=== PATIENT | male | born 1950 | race Asian ===

== ENCOUNTER 2017-07-02 11:12 | Inpatient (IN) | payer OTHER ==
[~2017-07-02] VITALS: Ht 170.2 cm; Wt 72.6 kg
[2017-07-02] VITALS (14 sets, daily range): BP systolic 103–148; BP diastolic 64–97; TEMP 98.7–98.8; Ht 170.2 cm; Wt 72.6 kg
--- NOTE | 2017-07-02 10:34 | NUR ---
PT DIRECT ADMIT TO ICU FROM U TO DR MARTÍNEZ. PT DENIES NAUSEA OR ABDOMINAL PAIN. ASSISTED TO BED 1.ORIENTED TO . PLACED ON CARDIAC MONITER. PT IN SR.
--- NOTE | 2017-07-02 10:50 | NUR ---
IV 20G INSYTE INSERTED R AC X 1 STICK,LABS DRAWN & TO LAB.
[~2017-07-02 11:12] MED LIST: ALBU0.5N13 INH; ALLO100T22 PO; ASPIR-8181 MG PO; BACLOFEN10 MG PO; CARDURA4 MG PO; CLON0.1T16 PO; CLOP75TA2 PO; DEKAS ESSENTIAL PO; FERROUS SU220 MG/5 M PO; FLUOXETINE20 MG PO; FURO40TA93 PO; INSUINJ20 SC; JEVITY 1.5 PO; LACTSYP31 PO; LANSOPRAZOLE30 MG PO; MAG OXIDE400 M2 PO; METOPROLOL25 M1 PO; MIDODRINE10 MG PO; OSCAL 500/1 TAB PO; OXCARBAZEP300 MG/51 PO; PACERONE200 MG PO; PRAVACHOL80 MG PO; TYLENOL325 MG PO
--- NOTE | 2017-07-02 11:50 | NUR ---
18F MCCRACKEN INSERTED PER ASEPTIC TECNIQUE. UA OBTAINED & TO LAB.
[2017-07-02 12:14] LABS: PLATELET COUNT 568 K/uL (142-355)
[2017-07-02 12:39] LABS: POTASSIUM 5.6 mmol/L (3.6-5.2)
--- NOTE | 2017-07-02 13:00 | NUR ---
[facility] CALLED TO NIMISHA SMITH APRN.
[2017-07-02] MEDS ORDERED: FLUOXETINE20 MG PO (15:03)
[2017-07-02] MEDS ORDERED: MULT VITAMI2 PO (15:15)
[2017-07-02] MEDS ORDERED: TRILEPTAL300 MG PO ×2 (15:22→15:24)
[2017-07-02] MEDS ORDERED: IRON325 MG PO (15:27)
[2017-07-02] MEDS ORDERED: METAMUCIL0.52 GM PEG (15:29)
[2017-07-02] MEDS ORDERED: PROTONIX20 MG PO (15:34)
[2017-07-02] MEDS ORDERED: ZINC220C4 PO (15:35)
[2017-07-02] MEDS ORDERED: LEVO-T50 MCG PO (15:37)
[2017-07-02] MEDS ORDERED: ASCORBIC ACID PEG (15:40)
[2017-07-02] MEDS ORDERED: ASCO500T18 PO (15:45)
[2017-07-02] MEDS ORDERED: [UNRECOGNIZED DRUG - CODE] EX (15:55)
--- NOTE | 2017-07-02 18:00 | NUR ---
PT AWAKE AND WANTS TO EAT. HOB UP. MCCRACKEN TO BSD. PT ALERT/ORIENTED
--- NOTE | 2017-07-02 20:00 | NUR ---
ATTEMPTED AGAIN TO NOTIFY FAMILY OF [T'S ADMISSION TO ICU. MESSAGE LEFT FOR FAMILY TO CALL OUR NUMBER.
[2017-07-03] VITALS (25 sets, daily range): BP systolic 123–151; BP diastolic 74–99; TEMP 98.1–99.4
[2017-07-03 07:01] LABS: PLATELET COUNT 419 K/uL (142-355)
[2017-07-03 07:15] LABS: POTASSIUM 4.7 mmol/L (3.6-5.2)
--- NOTE | 2017-07-03 08:00 | NUR ---
RESTING QUIETLY IN BED HOB UP NO COMPLAINTS MOUTH CARE DONE PT NPO.
--- NOTE | 2017-07-03 10:30 | NUR ---
PT TURNED AND REPOSITIONED DENIES PAIN CHANGED DRESSING RIGHT HEEL WET TO DRY. WILL REPORT TO DR MARTÍNEZ MAY NEED SURGICAL CONSULT. CHANGED DRESSING TO PEG ABD. AND CHECKED RIGHT BUTTOCKA LITTLE BLEEDING OLD. APPEARS LIKE ANB ABRASION APPLIED OINT SKIN BARRIER TO AREA. NO COMPLAINTS FROM PT. PT WATCHING TV.
--- NOTE | 2017-07-03 12:49 | NUR ---
PT FINISHED BREATHING TX HEARD ALARM FOR FAST HR. NOTED MONITOR HR 130 PT HAVING SHORT RUN OF PVC'S ASKED PT HOW HE FELT, STATED FEELING OK. DENIES PAIN. DENIES SHORTNESS OF BREATH. REPORT TO DR MARTÍNEZ, RECIEVED ORDERS EKG DONE. TACH AFTER BREATHING TX. CHANGED TIME ON BREATHING TX'S.
--- NOTE | 2017-07-03 14:00 | NUR ---
TURNED AND REPOSITIONED. CONTINUE TO MONITOR HR, SLOWED DOWN 110 WITH OCC PVC. CONTINUES TO DENY PAIN SHORTNESS OF BREATH.
--- NOTE | 2017-07-03 16:10 | NUR ---
REPORT PT STATUS TO NAYANA SMITH POOL TECHNICIAN. RECIEVED ORDERS. WOUND CULTURE OBTAINED, WILL CONSULT DR WELSH. PT REPOSITIONED IN BED.
--- NOTE | 2017-07-03 16:11 | NUR ---
NO TX GIVEN DUE TO ORDER CHANGE. PT IN NO DISTRESS AT THIS TIME.
--- NOTE | 2017-07-03 17:50 | NUR ---
DR WELSH HERE CONSULT FOR WOUND, CHECKED RIGHT HEEL. REDRESSED WITH WET TO DRY DRESSING, RECIEVED ORDER FOR WOUND DEBRIDMENT MADE SEVERAL ATTEMPTS TO CALL TO GET PHONE CONSENT. ALSO REPORT TO DR WELSH PT CONTINUES TO HAVE SHORT RUNS OF PVC'S. CHECKED CHART AND LABS.
--- NOTE | 2017-07-03 19:00 | NUR ---
RCD PT RESTING IN BED ABD DRESSING C/D IV PATENTT AT 75/HR N/S MCCRACKEN SD
--- NOTE | 2017-07-03 20:45 | NUR ---
COMPLETE BATH GIVEN SHORT RUNS OF VTACH ASYMPTOMATIC STRIPS ON CHART REPOSITIONED
--- NOTE | 2017-07-03 21:15 | NUR ---
DR MARTÍNEZ CALLED AWAITING RETURN RESTING WATCHING TV MONITOR REMAINS ST WITH SHORT RUNS V TACH
--- NOTE | 2017-07-03 22:36 | NUR ---
DR WELSH CALLED NO ORDERS DR WRIGHT CALLED IN ER CONT WITH RUNS OF V TACH BUT REMAINS ASYMPTOMATIC ORDERS GIVEN
--- NOTE | 2017-07-03 23:00 | NUR ---
RESTING ALERT SKIN W/D NO FURTHER RUNS NOTED
--- NOTE | 2017-07-03 23:00 | NUR ---
BLOOD DRAWN ATTEMPTED TO START IN ARMS CONTRACTED PT BECAME AGITATED LEFT ALONE IMPROVED
[2017-07-04] VITALS (15 sets, daily range): BP systolic 130–173; BP diastolic 76–100; TEMP 98–99.2
--- NOTE | 2017-07-04 01:00 | NUR ---
ALERT WHEN ROUSED MONITOR STABLE NO C/O
--- NOTE | 2017-07-04 03:00 | NUR ---
DR MCCLUREED HERE NO NEW ORDERS RESTING
[2017-07-04 06:53] LABS: PLATELET COUNT 356 K/uL (142-355)
--- NOTE | 2017-07-04 07:00 | NUR ---
DR WRIGHT VISITED CHECKED PT RECIEVED NEW ORDERS. PT RESTING QUIETLY IN BED NOTED SHORT RUN PVC AT TIME DOSEN'T SEEM TO BOTHER PT.
--- NOTE | 2017-07-04 08:00 | NUR ---
DR MARTÍNEZ VISITED AND NAYANA SMITH VISITED. CHECKED PT RECIEVED ORDERS. SURGERY STOPPED BY CHECKED ON PT WILL NOT BE HAVING ANY SURGERY TODAY. NO C/O NAUSEA, NO COMPLAINTS OF PAIN.
--- NOTE | 2017-07-04 09:00 | NUR ---
PT TO RECIEVE HIS PO MEDS SPOKE WITH NAYANA SMITH WILL GIVE MEDS BY PEG WITH SMALL AMOUNT FEEDING TO HELP KEEP PT FROM GETTING NAUSEA. RECIEVED ZOFRAN PRIOR ORDERED. ECHO DONE. NAYANA SMITH PLY SPLICER CALLED TO DR HOLGUIN ABOUT PT CONDITION.
--- NOTE | 2017-07-04 09:30 | NUR ---
PT UP IN BED CHECKED PEG NO RESIDUAL. RECIEVED 60 ML JEVITY 1.5 WITH CRUSHED MEDS. HOB UP SINDY WELL RECIEVED DIGOXIN ORDERED HR 95 SR OCCASIONAL RUN APPEARS V TACH. DOCTOR AWARE. WILL CONTINUE TO MONITOR.
--- NOTE | 2017-07-04 12:11 | NUR ---
PT RECIEVED MEDS ORDERED. CONTINUES TO HAVE RUNS APPEARS V TACH RECIEVED MEDS ORDERED . REPORT TO NAYANA WILDE. CALLED MADE TO DR HOLGUIN.
--- NOTE | 2017-07-04 12:30 | NUR ---
NAYANA SMITH METER TESTER PRIMARY HERE CHECKED PT PT ALERT TALKING NO COMPLAINTS. DENIES SHORTNESS OF BREATH. ON PHONE WITH [facility] SPOKE WITH DR HERNANDEZ. PT TO BE TRANSFERED TO [facility].
--- NOTE | 2017-07-04 13:00 | NUR ---
SKIN CARE DONE CHANGED DRESSING TO RIGHT HEEL. PT RESTING IN BED SPONGED OFF, NO COMPLAINTS.
--- NOTE | 2017-07-04 13:30 | NUR ---
CALLED TO [facility] NURSE TAKING CALL. HAVE MADE SEVERAL ATTEMPTS TO CALL FAMILY HAVE NOT BEEN ABLE TO REACH ANYONE. CALLED TO [place] TO SEE IF PT HAD ANY BELONGING OVER THERE THEY HAD NONE. EMS TO BE HERE SOON FOR TRANSPORT. ALSO REPORT TO GRIFFIN THAT I HAVE NOT BEEN ABLE TO REACH FAMILY MEMBERS.
--- NOTE | 2017-07-04 14:15 | NUR ---
EMS HERE RECIEVED REPORT, PT ASSIST TO STRETCHER. PROPED WITH PILLOWS. PT DISCHARGED VIA EMS TO GO TO [facility]. IV FLUIDS NS AT 75 CONTINUE IN ROUTE PT ON MONITOR. NO COMPLAINTS.
--- NOTE | 2017-07-04 14:35 | NUR ---
UNABLE TO GIVE PATIENT CARE SUMMARY PT HAD LEFT. CONTINUE TO TRY TO NOTIFY FAMILY.
== END 2017-07-04 14:25 | disposition short-term general hospital (02) | DRG 178 ==
LOC: ICU 11:12
PROVIDERS: ADMIT Emergency Medicine
DX: J69.0 Pneumonitis due to inhalation of food and vomit (principal); E87.4 Mixed disorder of acid-base balance; E87.5 Hyperkalemia; E83.41 Hypermagnesemia; D64.89 Other specified anemias; I12.9 Hypertensive chronic kidney disease with stage 1 through stage 4 chronic kidney disease, or unspecified chronic kidney disease; E11.22 Type 2 diabetes mellitus with diabetic chronic kidney disease; N18.3 Chronic kidney disease, stage 3 (moderate); I48.91 Unspecified atrial fibrillation; R00.0 Tachycardia, unspecified; N40.0 Benign prostatic hyperplasia without lower urinary tract symptoms; J44.9 Chronic obstructive pulmonary disease, unspecified; L89.612 Pressure ulcer of right heel, stage 2
CPT/HCPCS: 36415; 36600; 51702; 80053; 81000; 82550; 82553; 82805; 82962; 83605; 83735; 84100; 84484; 85027; 87040; 87070; 87077; 87088; 87186; 87205; 93005; 93306; 94640; 94664; 94760; 96372; J1160; J1644; J1650; J1956; J2060; J2405; J3490